=== PATIENT | male | born 1995 | race Caucasian/White ===

== ENCOUNTER 2019-08-09 14:27 | Emergency (ER) | payer BC ==
[~2019-08-09] VITALS: Ht 182.9 cm; Wt 72.6 kg
[2019-08-09] MEDS ORDERED: CEPH500 PO (16:56)
[2019-08-09] MEDS ORDERED: Mupirocin22 GM TOP (16:56)
== END 2019-08-09 17:07 | disposition home or self-care (01) ==
LOC: ER 14:27
DX: L03.116 Cellulitis of left lower limb (principal)
CPT/HCPCS: 99282

== ENCOUNTER 2020-12-28 11:41 | Emergency (ER) | payer OTHER ==
[~2020-12-28] VITALS: Ht 182.9 cm; Wt 77.1 kg
[~2020-12-28 11:41] MED LIST: CEPH500 PO; Mupirocin22 GM TOP
[2020-12-28 11:56] LABS: Source, Urine Clean Catch
[2020-12-28 12:01] LABS: Bilirubin, Urine Neg (Neg); Blood, Urine Neg (Neg); Glucose Qualitative, Urine Neg (Neg); Ketones, Urine Neg (Neg); Leukocyte Esterase, Urine Neg (Neg); Nitrite, Urine Neg (Neg); Protein, Urine Neg (Neg); Urobilinogen, Urine NORM (Normal)
[2020-12-28 12:02] LABS: Appearance, Urine Clear (Clear); Color, Urine Yellow (P-Yellow)
[2020-12-28] MEDS ORDERED: MONDOXYNE NL100 MG PO (13:05)
[2020-12-30 04:11] LABS: CHLAMYDIA TRACHOMATIS, NAA Negative (Negative)
== END 2020-12-28 13:24 | disposition home or self-care (01) ==
LOC: ER 11:41
PROVIDERS: Emergency Medicine; Physician Assistant
DX: N34.2 Other urethritis (principal); A64 Unspecified sexually transmitted disease
CPT/HCPCS: 81003; 87491; 87591; 96372; 99283-25; J0696

== ENCOUNTER 2021-05-01 14:22 | Emergency (ER) | payer OTHER ==
[~2021-05-01] VITALS: Ht 182.9 cm; Wt 90.7 kg
[~2021-05-01 14:22] MED LIST changes: +MONDOXYNE NL100 MG PO
== END 2021-05-01 15:43 | disposition home or self-care (01) ==
LOC: ER 14:22
DX: S63.657A Sprain of metacarpophalangeal joint of left little finger, initial encounter (principal); X50.1XXA Overexertion from prolonged static or awkward postures, initial encounter; Y93.55 Activity, bike riding
CPT/HCPCS: 73130; 99283-25

== ENCOUNTER 2023-08-27 23:01 | Emergency (ER) | payer OTHER ==
[~2023-08-27] VITALS: Ht 182.9 cm; Wt 77.1 kg
[2023-08-27 23:18] VITALS: BP 166/94
[2023-08-28] MEDS ORDERED: AMOCLA875 PO (00:17)
== END 2023-08-28 00:14 | disposition home or self-care (01) ==
LOC: ER 23:01
DX: S61.412A Laceration without foreign body of left hand, initial encounter (principal); W26.0XXA Contact with knife, initial encounter
CPT/HCPCS: 12002; 99282-25